=== PATIENT | male | born 1960 | race Caucasian/White ===

== ENCOUNTER 2016-08-27 07:10 | Outpatient (CLI) ==
--- NOTE | 2016-08-28 11:32 | STRESSECHO ---
Date of Test: 08/27/16 Reason for Exam: HISTORY OF NV, CABG X3 Ordering Physician: AMARIS Current Medications: GLUCOPHAGE, LOPRESSOR, PRAVACHOL, TRICOR, ASA Physical Findings: S1, S2, NO S3 Resting EKG: SINUS RHYTHM/NO ACUTE CHANGES Target Heart Rate: 141/166 STAGE MPH/GRADE HEART RATE BLOOD PRESSURE RHYTHM S-T SEGMENT +/- UP DOWN SYMPTOMS,COMMENTS At Rest 60 130/82 SR X NONE 1 1.7/10% 98 128/78 SR X NONE 2 2.5/12% 125 154/66 SR X NONE 3 3.4/14% 4 4.2/16% 5 5.0/18% Immediately after 142 160/56 SR X FATIGUE Durations of Exercise: 8:17 Maximum Heart Rate Reached: 142 Reason for Termination: FATIGUE INTERPRETATION: 98% OXYGEN SATURATION WITH EXERCISE ON ROOM AIR METS 10.1 1. TEST NEGATIVE FOR ISCHEMIC ST-T WAVE CHANGES 2. NO CHEST PAIN OR CHEST DISCOMFORT 3. NO ARRHYTHMIAS 4. BLOOD PRESSURE RESPONSE NORMAL NORMAL LEFT VENTRICULAR CONTRACTILITY--RESTING AND POST EXERCISE BY ECHO MTDD
--- NOTE | 2016-08-28 11:35 | ECHOSTRESS ---
Date of Exam: 08/27/16 Ordering Physician: JOHNSON GLEZ Reason for Echo: CAD, CABG, STRESS TEST--NO ISCHEMIA M-Mode Normal Adult Results LV Dimensions Normal Adult Results AoV Opening excursions >1.6 LVEDD-base- 3.5-5.8 Ao root dimensions 2.0-3.7 LVESD-base- 3.1-4.6 L. Atrium dimensions 1.9-3.8 Post. Wall thickness 0.8-1.1 IV septum (thickness) 0.7-1.2 Post. Wall excursion 0.72-1.3 Septal motion Systolic motion R. Ventricular cavity 1.5-2.0 LVEF 60% Paradoxical septal wall motion 2-D: NORMAL LEFT VENTRICULAR CONTRACTILITY--RESTING AND POST EXERCISE M-MODE: MV: AV: TV: PV: CHAMBER SIZE: WALL MOTION:NORMAL LEFT VENTRICULAR CONTRACTILITY--RESTING AND POST EXERCISE PERICARDIUM: INTERPRETATION: 1. NORMAL LEFT VENTRICULAR CONTRACTILITY--RESTING AND POST EXERCISE MTDD
== END 2016-08-27 07:11 | disposition home or self-care (01) ==
LOC: CAR 07:10
PROVIDERS: ATTEND Family Medicine
DX: I25.10 Atherosclerotic heart disease of native coronary artery without angina pectoris (principal)

== ENCOUNTER 2017-02-16 20:13 | Emergency (ER) ==
[2017-02-16] MEDS ORDERED: SODIUM CHLORIDE 1,000 ML IV STA (20:14)
[2017-02-16] MEDS ORDERED: ASPIRIN CHEWABLE PO STA (20:15)
[2017-02-16] MEDS ORDERED: NITROSTAT SL STA (20:15)
[2017-02-16 20:25] LABS: BASOPHILS # (AUTO) 0.1 K/uL (0-0.2); BASOPHILS % (AUTO) 0.6 % (0.0-3.0); EOSINOPHILS # (AUTO) 0.3 K/ul (0.0-0.7); EOSINOPHILS % (AUTO) 1.6 % (0.0-7.0); HEMATOCRIT 41.9 % (42.0-52.0); HEMOGLOBIN 14.4 g/dl (14.0-18.0); IMMATURE GRANULOCYTE % (AUTO) 0.3 % (0.0-5.0); LYMPHOCYTES # (AUTO) 5.4 K/uL (0.60-3.4); LYMPHOCYTES % (AUTO) 34.2 (10.0-50.0); MEAN CORPUSCULAR HEMOGLOBIN 29.6 pg (27.0-31.0); MEAN CORPUSCULAR HGB CONC 34.4 (31.8-35.4); MEAN CORPUSCULAR VOLUME 86.2 fl (80.0-94.0); MONOCYTES # (AUTO) 1.3 K/uL (0.4-2.0); MONOCYTES % (AUTO) 8.4 (0-10); NEUTROPHILS # (AUTO) 8.7 K/ul (2.0-6.9); NEUTROPHILS % (AUTO) 54.9; PLATELET COUNT 409 10^3/uL (140-440); RED BLOOD COUNT 4.86 10^6/ul (4.70-6.10); WHITE BLOOD COUNT 15.75 K/ul (4.2-10.2)
[2017-02-16] MEDS ORDERED: LOVENOX SUBCUT STA ×2 (20:25→20:29)
[2017-02-16] MEDS ORDERED: DILAUDID 1 MG/ML SYRINGE IVP STA (20:25)
--- NOTE | 2017-02-16 20:25 | ED.PDOC ---
General ED Provider: Dr. REJI STEEL Chief Complaint: Chest Pain Stated Complaint: Patient is a 56 year old Male who comes to the ER with History of CAD with prior CABG 8 years ago who started having chest pain while on the roof today. Pain started 4 hours ago. Time Seen by Physician: 20:15 Information Source: Patient, Family Exam Limitations: Clinical condition Primary Care Provider: JOHNSON GLEZ Nursing and Triage Documentation Reviewed and Agree: Yes Cardiovascular Complaint Exam - Chest Pain Complaint/Exam Onset: Sudden Duration: 4 days Symptoms Are: Still present Timing: Constant Length of Chest Pain Episodes: 4 Initial Severity: Severe Current Severity: Severe Location: Reports: Midsternal Pain Radiates: Reports: Left arm, Neck Character: Reports: Crushing, Tightness, Heaviness Aggravating: Reports: Exertion Alleviating: Reports: None Associated Signs and Symptoms: Reports: Diaphoresis, Nausea, Dizziness, Short of air Related History: Reports: Similar episode, Current Beta Rod Related Surgical History: Reports: CABG History of Healthcare-Acquired Pneumonia: Reports: No AMI/ACS Risk Factors: Reports: Myocardial Infarction Prior Care for this Complaint: No Recent Stress Test: No Recent Echo/LV Function: No JVD Present: No Subcutaneous Emphysema Present: No Diminshed Breath Sounds: No Reproducible Chest Wall Pain: No Chest Picture: 1 - pain 2 - radiation If Risk Factors for AMI/ACS Consider: EKG, Cardiac Enzymes, Oxygen, Aspirin Documents Reviewed: Labs, Imaging, EKG Care and Dx Studies 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 (5 min) Quality Indicators for Acute IA: PTCA/PCI Quality Indicator For Non-Traumatic Chest Pain/Syncope: EKG Performed Review of Systems - Review Of Systems Constitutional: Reports: Diaphoresis Eyes: Reports: No symptoms Ears, Nose, Mouth, Throat: Reports: No symptoms Respiratory: Reports: Short of air Cardiac: Reports: Chest pain GI: Reports: Nausea : Reports: No symptoms Musculoskeletal: Reports: No symptoms Skin: Reports: No symptoms Neurological: Reports: Anxiety Hematologic/Lymphatic: Reports: No symptoms All Other Systems: Reviewed and Negative Past Medical History - Past Medical History Endocrine: Reports: Unknown Cardiovascular: Reports: CAD, Hypertension Respiratory: Reports: Unknown Hematological: Reports: Unknown Gastrointestinal: Reports: Unknown Genitourinary: Reports: Unknown Neuro/Psych: Reports: Unknown Musculoskeletal: Reports: None Cancer: Reports: Unknown - Surgical History General Surgical History: Reports: CABG - Family History Family History: Reports: Unknown - Social History Smoking Status: Former smoker, Never smoker Hx Substance Use: No Alcohol Screening: None Lives: With family Physical Exam - Physical Exam Appearance: Ill-appearing Pain Distress: Severe Neck: Supple Respiratory: Airway patent, Breath sounds clear, Breath sounds equal, Respirations nonlabored Cardiovascular: RRR, Pulses normal, No rub, No murmur GI/: Soft, Nontender, No masses, Bowel sounds normal, No Organomegaly Musculoskeletal: Normal strength, ROM intact, No edema, No calf tenderness Skin: Diaphoretic Neurological: Alert, Oriented Psychiatric: Anxious Interpretation - Radiology Interpretation Radiology Interpretation By: Radiologist Radiology Results: Negative Exam Interpreted: Portable CXR - Foot Setter Rate: Zev Rhythm: Sinus - EKG Interpretation Time of EKG #1: 20:14 Rate: Zev Rhythm: Sinus Ectopy: None [place]: NL ST Segment: Other (Ateriolateral Injury or acute infact.) Interpretation: Acute IA Physician Notification - Case Discussed Physician Notified: Dr Spaulding Time of Notification: 20:20 (Ok to transfer to [facility] [place].) Critical Care Note - Critical Care Note Total Time (mins): 15 Course - Course Hematology/Chemistry: 02/16/17 20:20 02/16/17 20:20 Orders, Labs, Meds: Lab Review 02/16/17 20:20 WBC 15.75 H RBC 4.86 Hgb 14.4 Hct 41.9 L MCV 86.2 MCH 29.6 MCHC 34.4 RDW Coeff of Geovany 13.3 Plt Count 409 Immature Gran % (Auto) 0.3 Neut % (Auto) 54.9 Lymph % (Auto) 34.2 [place] % (Auto) 8.4 Eos % (Auto) 1.6 Baso % (Auto) 0.6 Immature Gran # (Auto) 0.1 Neut # 8.7 H Lymph # 5.4 H [place] # 1.3 Eos # 0.3 Baso # 0.1 Sodium 141 Potassium 3.9 Chloride 108 H Carbon Dioxide 18 L Anion Gap 18.9 BUN 25 H Creatinine 2.13 H Estimated GFR (MDRD) 32.00 BUN/Creatinine Ratio 11.73 Glucose 145 H Calcium 10.0 Total Bilirubin 0.59 AST 35 ALT 51 Alkaline Phosphatase 69 Total Creatine Kinase 808 CK-MB (CK-2) 7.6 H* CK-MB (CK-2) % 0.32802 Troponin I 0.0290 Total Protein 6.8 Albumin 4.1 Globulin 2.7 Albumin/Globulin Ratio 1.52 Orders Category Date Time Status EKG-(ED ONLY) Stat CARDIO 02/16/17 20:14 Completed ED APPLY O2 .ONCE EMERGENCY 02/16/17 20:14 Active ED RFID MANAGER APPLIED .ONCE EMERGENCY 02/16/17 20:14 Active ED IV/MEDIPORT/POWERPORT .ONCE EMERGENCY 02/16/17 20:14 Active CBC W/ AUTO DIFF Stat LAB 02/16/17 20:20 Completed COMPREHENSIVE METABOLIC PANEL Stat LAB 02/16/17 20:20 Completed CREATINE KINASE Stat LAB 02/16/17 20:20 Completed TROPONIN I Stat LAB 02/16/17 20:20 Completed 0.9 % Sodium Chloride [Saline Flush] MEDS 02/16/17 20:14 Ordered 1 syr IVF PRN PRN Aspirin [Aspirin Chewable] MEDS 02/16/17 20:15 Discontinued 324 mg PO ONCE STA Enoxaparin Sodium [Lovenox] MEDS 02/16/17 20:30 Discontinued 30 mg .ROUTE .STK-MED ONE Enoxaparin Sodium [Lovenox] MEDS 02/16/17 20:29 Discontinued 30 mg SUBCUT ONCE STA Enoxaparin Sodium [Lovenox] MEDS 02/16/17 20:28 Discontinued 60 mg .ROUTE .STK-MED ONE Enoxaparin Sodium [Lovenox] MEDS 02/16/17 20:25 Discontinued 80 mg SUBCUT ONCE STA Hydromorphone HCl [Dilaudid 1 mg/ml Syringe] MEDS 02/16/17 20:26 Discontinued 1 mg .ROUTE .STK-MED ONE Hydromorphone HCl [Dilaudid 1 mg/ml Syringe] MEDS 02/16/17 20:25 Discontinued 1 mg IVP ONCE STA Nitroglycerin [Nitrostat] MEDS 02/16/17 20:15 Discontinued 0.4 mg SL ONCE STA Ondansetron HCl/Pf [Zofran 4 mg/2 ml] MEDS 02/16/17 20:28 Discontinued 4 mg .ROUTE .STK-MED ONE Ondansetron HCl/Pf [Zofran 4 mg/2 ml] MEDS 02/16/17 20:30 Discontinued 4 mg IVP ONCE STA Sodium Chloride 0.9% [Sodium Chloride] 1,000 ml MEDS 02/16/17 20:14 Active IV 125 mls/hr CHEST, 1V AP ONLY Stat RADS 02/16/17 20:14 Completed Medications Generic Name Dose Route Start Last Admin Trade Name Freq PRN Reason Stop Dose Admin Sodium Chloride 1,000 mls @ 125 mls/hr 02/16/17 20:14 02/16/17 20:42 Sodium Chloride IV 02/17/17 04:13 Not Given .Q8H STA Sodium Chloride 1 syr 02/16/17 20:14 02/16/17 20:42 Saline Flush IVF 1 syr PRN PRN Administration To flush IV Discontinued Medications Generic Name Dose Route Start Last Admin Trade Name Freq PRN Reason Stop Dose Admin Aspirin 324 mg 02/16/17 20:15 02/16/17 20:32 Aspirin Chewable PO 02/16/17 20:16 324 mg ONCE STA Administration Enoxaparin Sodium 80 mg 02/16/17 20:25 02/16/17 20:41 Lovenox SUBCUT 02/16/17 20:26 Not Given ONCE STA Enoxaparin Sodium 30 mg 02/16/17 20:29 02/16/17 20:42 Lovenox SUBCUT 02/16/17 20:30 Not Given ONCE STA Hydromorphone HCl 1 mg 02/16/17 20:25 02/16/17 20:41 Dilaudid 1 Mg/Ml Syringe IVP 02/16/17 20:26 Not Given ONCE STA Nitroglycerin 0.4 mg 02/16/17 20:15 02/16/17 20:42 Nitrostat SL 02/16/17 20:16 0.4 mg ONCE STA Administration Ondansetron HCl 4 mg 02/16/17 20:30 02/16/17 20:44 Zofran 4 Mg/2 Ml IVP 02/16/17 20:31 Not Given ONCE STA Vital Signs: Temp Pulse Resp BP Pulse Ox 07/01/17 20:47 98.8 F 75 22 120/82 99 [place] Risk Score Age >/= 65: No >/= 3 CAD Risk Factors: Yes Known CAD (Stenosis >/= 50%): Yes ASA Use in Past 7 Days: Yes Severe Angina (>/= 2 episodes in 24 hours): Yes EKG ST Changes >/= 0.5mm: Yes Postive Cardiac Marker: No [place] Total Score: 5 [place] Risk Score: Risk Score Odds of by 30D 0 0.1 (0.1-0.2) 1 0.3 (0.2-0.3) 2 0.4 (0.3-0.5) 3 0.7 (0.6-0.9) 4 1.2 (1.0-1.5) 5 2.2 (1.9-2.6) 6 3.0 (2.5-3.6) 7 4.8 (3.8-6.1) Departure - Departure Time of Disposition: 20:30 Disposition: TSF SHORT-TRM HOSP Discharge Problem: Acute IA inferior lateral first episode care Condition: Critical Pt referred to PMD for follow-up: No Allergies/Adverse Reactions: Allergies No Known Allergies Allergy (Unverified 02/16/17 21:31) Pt. Stabilized Within Hospital's Capabilities/Transferred To: [facility] Form Completed: Yes Disposition Discussed With: Patient, Family
[2017-02-16] MEDS ORDERED: DILAUDID 1 MG/ML SYRINGE ONE (20:26)
[2017-02-16] MEDS ORDERED: ZOFRAN 4 MG/2 ML ONE (20:28)
[2017-02-16] MEDS ORDERED: LOVENOX ONE ×2 (20:28→20:30)
[2017-02-16] MEDS ORDERED: ZOFRAN 4 MG/2 ML IVP STA (20:30)
--- NOTE | 2017-02-16 20:36 | DI ---
: Single x-ray of the chest. Comparison: 11/07/2008. Reason for exam: Chest pain. FINDINGS: Operative changes are seen after midline sternotomy and CABG. No pneumothorax, pleural e ffusion, or focal consolidation. The cardiac silhouette is not enlarged. Impression: No acute cardiopulmonary process.
[2017-02-16 20:55] VITALS: BP 120/82; TEMP 98.8; BMI 27.3
[2017-02-16 21:08] LABS: ALBUMIN 4.1 g/dL (3.4-5.0); ALBUMIN/GLOBULIN RATIO 1.52; ANION GAP 18.9; BILIRUBIN,TOTAL 0.59 mg/dL (0.00-1.20); BUN/CREATININE RATIO 11.73; CREATININE 2.13 mg/dL (0.60-1.10); POTASSIUM 3.9 mmol/L (3.5-5.1); TOTAL PROTEIN 6.8 g/dL (6.4-8.2); TROPONIN I 0.029 ng/ml (0.0000-0.4000)
[2017-02-16 21:09] LABS: CREATINE KINASE MB 7.6 ng/ml (0.0-3.6)
== END 2017-02-16 20:32 | disposition short-term general hospital (02) ==
LOC: ED 20:13
DX: I21.19 ST elevation (STEMI) myocardial infarction involving other coronary artery of inferior wall (principal); I25.810 Atherosclerosis of coronary artery bypass graft(s) without angina pectoris; I11.9 Hypertensive heart disease without heart failure
CPT/HCPCS: 36415; 80053; 82550; 82553; 84484; 85025; 93005; 93010; 96372; 96374; 96375; 99285

== ENCOUNTER 2017-02-16 20:31 | Outpatient (CLI) ==
[2017-02-16 20:55] VITALS: BMI 27.3
== END 2017-02-16 20:32 | disposition home or self-care (01) ==
LOC: AMBL 20:31
PROVIDERS: ATTEND Internal Medicine Geriatric Medicine
DX: R07.9 Chest pain, unspecified (principal); I21.3 ST elevation (STEMI) myocardial infarction of unspecified site; R06.02 Shortness of breath; R03.1 Nonspecific low blood-pressure reading; Z95.1 Presence of aortocoronary bypass graft

== ENCOUNTER 2017-02-28 13:19 | Outpatient (RCR) ==
[2017-02-28 14:52] VITALS: TEMP 98.2
[2017-03-15 13:23] VITALS: BP 122/76
== END 2017-03-18 ==
LOC: CAR.REHAB 13:19
PROVIDERS: ATTEND Internal Medicine
DX: I25.810 Atherosclerosis of coronary artery bypass graft(s) without angina pectoris (principal)
CPT/HCPCS: 93798

== ENCOUNTER → 2017-03-19 08:00 | Outpatient (RCR) | END | disposition home or self-care (01) | LOC: CAR.REHAB 08:00 | PROVIDERS: ATTEND Internal Medicine | DX: I25.810 Atherosclerosis of coronary artery bypass graft(s) without angina pectoris (principal) ==

== ENCOUNTER 2018-03-25 06:36 | Outpatient (CLI) ==
--- NOTE | 2018-03-25 08:21 | STRESSECHO ---
Date of Test: 03/25/18 Ordering Physician: DR. JOHNSON GLEZ Occupation :[employer] Reason for Exam: CAD, HYPERTENSION, HX [place] 2008 & 2016 Smoking History: QUIT 10 YRS AGO Height: 67" Weight: 178 LBS Current Medications: EFFIENT, LIPITOR, COREG, GLUCOPHAGE, TRICOR, CALCIUM, ASA Resting EKG: SINUS RHYTHM/ LVH BY VOLTAGE Target Heart Rate: 139/164 S-T SEGMENT STAGE MPH/GRADE HEART RATE BPM BLOOD PRESSURE MMHG RHYTHM +/- ELEVATION DEPRESSION SYMPTOMS,COMMENTS AT REST 58 118/68 SR X NONE 1 1.7/10% 94 128/80 SR X NONE 2 2.5/12% 110 140/80 SR X NONE 3 3.4/14% 4 4.2/16% 5 5.0/18% Immediately After 142 162/72 SR X TIRED Minutes Post Exercise 5:00 65 148/72 SR X TIRED Minutes Post Exercise DURATION OF EXERCISE: 9:13 MAXIMUM HEART RATE REACHED: 142 REASON FOR TERMINATION: TIRED 96% OXYGEN SATURATION WITH EXERCISE ON ROOM AIR METS: 10.8 INTERPRETATION: 1. NO EVIDENCE OF ISCHEMIA BY ST-T WAVE 2. NO CHEST PAIN OR DISCOMFORT 3. NO ARRHYTHMIAS 4. BLOOD PRESSURE RESPONSE: ADEQUATE NORMAL LEFT VENTRICULAR CONTRACTILITY--RESTING AND POST EXERCISE MTDD
--- NOTE | 2018-03-27 10:32 | ECHOSTRESS ---
Date of Exam: 03/25/18 Ordering Physician: DR. JOHNSON GLEZ Reason for Echo: CAD, HTN, STEM, STRESS TEST--NO ISCHEMIA M-Mode Normal Adult Results LV Dimensions Normal Adult Results AoV Opening excursions >1.6 LVEDD-base- 3.5-5.8 Ao root dimensions 2.0-3.7 LVESD-base- 3.1-4.6 L. Atrium dimensions 1.9-3.8 Post. Wall thickness 0.8-1.1 IV septum (thickness) 0.7-1.2 Post. Wall excursion 0.72-1.3 Septal motion Systolic motion R. Ventricular cavity 1.5-2.0 LVEF 60% Paradoxical septal wall motion 2-D: NORMAL LEFT VENTRICULAR CONTRACTILITY--RESTING AND POST EXERCISE M-MODE: MV: AV: TV: PV: CHAMBER SIZE: WALL MOTION: NORMAL LEFT VENTRICULAR CONTRACTILITY--RESTING AND POST EXERCISE PERICARDIUM: INTERPRETATION: 1. NORMAL LEFT VENTRICULAR CONTRACTILITY--RESTING AND POST EXERCISE MTDD
== END 2018-03-25 06:37 | disposition home or self-care (01) ==
LOC: CAR 06:36
PROVIDERS: ATTEND Family Medicine
DX: I25.10 Atherosclerotic heart disease of native coronary artery without angina pectoris (principal); I10 Essential (primary) hypertension; I21.11 ST elevation (STEMI) myocardial infarction involving right coronary artery